=== PATIENT | male | born 1975 | race Caucasian/White ===

== ENCOUNTER 2021-04-13 10:11 | Inpatient (IN) | payer MEDICARE ==
[~2021-04-13] VITALS: Ht 170.2 cm; Wt 86.7 kg
[2021-04-13 11:24] LABS: HEMOGLOBIN 15.8 gm/dl (14.0-17.5); RED BLOOD COUNT 4.49 M/UL (4.20-5.50); WHITE BLOOD COUNT 5.5 K/UL (4.5-11.0)
[2021-04-13 11:50] LABS: BUN/CREATININE RATIO 14 (0-10)
[2021-04-14 07:43] LABS: WHITE BLOOD COUNT 4.3 K/UL (4.5-11.0)
[2021-04-14 08:06] LABS: BUN/CREATININE RATIO 20 (0-10)
[2021-04-14 08:40] LABS: HEMOGLOBIN 13.2 gm/dl (14.0-17.5); RED BLOOD COUNT 3.88 M/UL (4.20-5.50)
[2021-04-15 03:22] LABS: HEMOGLOBIN 13.3 gm/dl (14.0-17.5); RED BLOOD COUNT 3.86 M/UL (4.20-5.50)
[2021-04-15 03:56] LABS: WHITE BLOOD COUNT 5.6 K/UL (4.5-11.0)
[2021-04-15 04:14] LABS: BUN/CREATININE RATIO 31 (0-10)
[2021-04-16 03:36] LABS: HEMOGLOBIN 13.3 gm/dl (14.0-17.5); RED BLOOD COUNT 3.86 M/UL (4.20-5.50); WHITE BLOOD COUNT 6.2 K/UL (4.5-11.0)
[2021-04-17] MEDS ORDERED: CYANOCOBAL1000 MCG/1 SL (13:12)
--- NOTE | 2021-04-17 18:32 | NUR ---
TF STARTED @ 10ML/HR PER NEW ORDER.
[2021-04-18 08:55] LABS: HEMOGLOBIN 11.9 gm/dl (14.0-17.5)
[2021-04-18 09:05] LABS: RED BLOOD COUNT 3.44 M/UL (4.20-5.50); WHITE BLOOD COUNT 13.2 K/UL (4.5-11.0)
--- NOTE | 2021-04-18 18:09 | NUR ---
PT TURNED AND REPOSITIONED Q2-3HRS WITH FREQUENT ORAL CARE PERFORMED. LINENS STRAIGHTENED WITH EACH REPOSITION.
[2021-04-19 05:06] LABS: HEMOGLOBIN 11.3 gm/dl (14.0-17.5); RED BLOOD COUNT 3.28 M/UL (4.20-5.50)
[2021-04-19 09:46] LABS: BUN/CREATININE RATIO 25 (0-10)
[2021-04-20 06:05] LABS: HEMOGLOBIN 10.2 gm/dl (14.0-17.5); RED BLOOD COUNT 2.97 M/UL (4.20-5.50)
[2021-04-20 06:15] LABS: WHITE BLOOD COUNT 6.8 K/UL (4.5-11.0)
[2021-04-20 06:39] LABS: BUN/CREATININE RATIO 30 (0-10)
[2021-04-20 09:11] LABS: 7-AMINOCLONAZEPAM Negative (.); ALPRAZOLAM Negative (.); BENZODIAZEPINES CONFIRM Negative (.); CHLORDIAZEPOXIDE Negative (.); CLONAZEPAM Negative (.); DESALKYLFLURAZEPAM Negative (.); DESMETHYLCHLORDIAZEPOXIDE Negative (.); DESMETHYLDIAZEPAM Negative (.); DIAZEPAM Negative (.); FLURAZEPAM Negative (.); LORAZEPAM Negative (.); MIDAZOLAM Negative (.); OXAZEPAM Negative (.); TEMAZEPAM Negative (.); TRIAZOLAM Negative (.)
[2021-04-21 04:12] LABS: HEMOGLOBIN 10.9 gm/dl (14.0-17.5); RED BLOOD COUNT 3.18 M/UL (4.20-5.50)
[2021-04-21 04:47] LABS: BUN/CREATININE RATIO 33 (0-10)
[2021-04-22 05:15] LABS: HEMOGLOBIN 11.2 gm/dl (14.0-17.5); RED BLOOD COUNT 3.29 M/UL (4.20-5.50); WHITE BLOOD COUNT 7.3 K/UL (4.5-11.0)
[2021-04-22 05:50] LABS: BUN/CREATININE RATIO 38 (0-10)
[2021-04-23 05:08] LABS: RED BLOOD COUNT 3.22 M/UL (4.20-5.50); WHITE BLOOD COUNT 7.8 K/UL (4.5-11.0)
[2021-04-23 05:28] LABS: BUN/CREATININE RATIO 44 (0-10)
[2021-04-23 16:14] LABS: 6-ACETYLMORPHINE Negative (.); CODEINE Negative (.); DIHYDROCODEINE Negative (.); HYDROCODONE Negative (.); HYDROMORPHONE Negative (.); METHADONE Negative (.); METHADONE CONFIRMATION Negative (.); MORPHINE Negative (.); OPIATE CONFIRMATION Negative (.)
[2021-04-24 05:40] LABS: RED BLOOD COUNT 4.43 M/UL (4.20-5.50); WHITE BLOOD COUNT 27.4 K/UL (4.5-11.0)
[2021-04-24 05:41] LABS: HEMOGLOBIN 15.1 gm/dl (14.0-17.5)
[2021-04-24 19:09] LABS: AMPHETAMINE Negative (.); AMPHETAMINES CONFIRMATION Negative (.); MDA Negative (.); MDEA Negative (.); MDMA Negative (.); METHAMPHETAMINE Negative (.)
[2021-04-25 05:42] LABS: HEMOGLOBIN 11.9 gm/dl (14.0-17.5); RED BLOOD COUNT 3.39 M/UL (4.20-5.50); WHITE BLOOD COUNT 19.1 K/UL (4.5-11.0)
[2021-04-26 04:51] LABS: HEMOGLOBIN 11.6 gm/dl (14.0-17.5); RED BLOOD COUNT 3.27 M/UL (4.20-5.50); WHITE BLOOD COUNT 17.4 K/UL (4.5-11.0)
[2021-04-27 04:48] LABS: HEMOGLOBIN 9.7 gm/dl (14.0-17.5); WHITE BLOOD COUNT 13.3 K/UL (4.5-11.0)
[2021-04-27 04:50] LABS: RED BLOOD COUNT 2.81 M/UL (4.20-5.50)
[2021-04-28 06:04] LABS: HEMOGLOBIN 11.1 gm/dl (14.0-17.5)
[2021-04-28 06:12] LABS: RED BLOOD COUNT 3.25 M/UL (4.20-5.50); WHITE BLOOD COUNT 18.1 K/UL (4.5-11.0)
[2021-04-29 06:56] LABS: HEMOGLOBIN 9.6 gm/dl (14.0-17.5)
[2021-04-29 06:57] LABS: RED BLOOD COUNT 2.78 M/UL (4.20-5.50); WHITE BLOOD COUNT 13.2 K/UL (4.5-11.0)
[2021-04-29 11:14] LABS: CREATININE, URINE 51.5 mg/dL (Not Estab.)
[2021-04-30 05:26] LABS: HEMOGLOBIN 7.9 gm/dl (14.0-17.5)
[2021-04-30 05:36] LABS: RED BLOOD COUNT 2.3 M/UL (4.20-5.50); WHITE BLOOD COUNT 9.1 K/UL (4.5-11.0)
[2021-04-30 10:14] LABS: HBSAG SCREEN Negative (Negative); HEP A AB, IGM Negative (Negative); HEP B CORE AB, IGM Negative (Negative); HEP C VIRUS AB <0.1 (0.0-0.9)
[2021-05-01 03:46] LABS: HEMOGLOBIN 9.4 gm/dl (14.0-17.5)
[2021-05-01 03:47] LABS: RED BLOOD COUNT 2.76 M/UL (4.20-5.50); WHITE BLOOD COUNT 16.3 K/UL (4.5-11.0)
--- NOTE | 2021-05-01 14:22 | NUR ---
PER MD REQUEST/ORDER. TEMPORARY DIALYSIS CATH PLACED BY DR. COLE AT 1100. CONSENT SIGNED AND IN CHART. PT TOLERATED WELL. CHEST XRAY ORDERED PER MD AND GIVEN OK TO USE FOR HD. PER MD ORDER, HD STARTED AT 1320 PER HD NURSE.
[2021-05-02 05:26] LABS: HEMOGLOBIN 8.1 gm/dl (14.0-17.5); RED BLOOD COUNT 2.37 M/UL (4.20-5.50); WHITE BLOOD COUNT 18.4 K/UL (4.5-11.0)
--- NOTE | 2021-05-02 12:35 | NUR ---
AT APPROXIMATELY 1100 MR. ROSALES WAS FINISHING HD TREATMENT WHEN HIS OXYGEN SATURATED DROPPED ON THE MONITOR. DR. Bolden ASSESED THE PATIENT AND DETERMINED THAT A CHEST TUBE WAS NEEDED. A CHEST TUBE WAS PLACED TPO THE PATIENTS RIGHT SIDE PER DR. Bolden. AT THIS TIME THE VENTILATOR SUPPLIED O2 WAS INCREASED TO 100% PER MD. THE PATIENT TOLERATED THE PROCEDURE WELL AND IS NOW AT 96% ON THE MONITOR WITH 80% O2 ON VENTILTAOR. SEE MD NOTE/ VITAL SIGNS. PT APPEARS STABLE AT THIS TIME. WILL CONTINUE TO MONITOR. CHEST TUBE PLACEMENT VERIFIED VIA CHEST XRAY.
--- NOTE | 2021-05-02 15:08 | NUR ---
NAKUL CRITICAL ABG TO DR. MARSHAL MD @ 5989 RB AND VERIFIED.
[2021-05-03 04:45] LABS: HEMOGLOBIN 8.7 gm/dl (14.0-17.5); RED BLOOD COUNT 2.57 M/UL (4.20-5.50)
[2021-05-03 07:10] LABS: WHITE BLOOD COUNT 32.1 K/UL (4.5-11.0)
--- NOTE | 2021-05-03 08:15 | NUR ---
PER FAMILY REQUEST [facility] [place] CONTACTED FOR RELEASE OF PATIENT.
== END 2021-05-03 09:37 | disposition expired | DRG 4 ==
LOC: ER1 10:11 → CDU 15:17 → PROG CARE 15:17 → CCU 15:17 → PROG CARE 21:42 → CCU 04-16 10:24
PROVIDERS: Internal Medicine; Internal Medicine Nephrology; Internal Medicine Pulmonary Disease; Physician Assistant; Registered Nurse; Surgery; ADMIT Internal Medicine
PROC: 3E033XZ Introduction of Vasopressor into Peripheral Vein, Percutaneous Approach (ICD-10-PCS; 2021-04-13)
PROC: 8E0ZXY6 Isolation (ICD-10-PCS; 2021-04-13)
PROC: XW033E5 Introduction of Remdesivir Anti-infective into Peripheral Vein, Percutaneous Approach, New Technology Group 5 (ICD-10-PCS; 2021-04-13)
PROC: 3E0333Z Introduction of Anti-inflammatory into Peripheral Vein, Percutaneous Approach (ICD-10-PCS; 2021-04-13)
PROC: 5A1955Z Respiratory Ventilation, Greater than 96 Consecutive Hours (ICD-10-PCS; principal; 2021-04-16)
PROC: 0BH18EZ Insertion of Endotracheal Airway into Trachea, Via Natural or Artificial Opening Endoscopic (ICD-10-PCS; 2021-04-16)
PROC: 05HN33Z Insertion of Infusion Device into Left Internal Jugular Vein, Percutaneous Approach (ICD-10-PCS; 2021-04-16)
PROC: 5A1D70Z Performance of Urinary Filtration, Intermittent, Less than 6 Hours Per Day (ICD-10-PCS; 2021-04-24)
PROC: 0W9B30Z Drainage of Left Pleural Cavity with Drainage Device, Percutaneous Approach (ICD-10-PCS; 2021-04-24)
PROC: 0BJ08ZZ Inspection of Tracheobronchial Tree, Via Natural or Artificial Opening Endoscopic (ICD-10-PCS; 2021-04-29)
PROC: 0DJ08ZZ Inspection of Upper Intestinal Tract, Via Natural or Artificial Opening Endoscopic (ICD-10-PCS; 2021-04-29)
PROC: 0DH63UZ Insertion of Feeding Device into Stomach, Percutaneous Approach (ICD-10-PCS; 2021-04-29)
PROC: 0W9B30Z Drainage of Left Pleural Cavity with Drainage Device, Percutaneous Approach (ICD-10-PCS; 2021-04-29)
PROC: 0B113F4 Bypass Trachea to Cutaneous with Tracheostomy Device, Percutaneous Approach (ICD-10-PCS; 2021-04-29 12:30)
PROC: 0W9930Z Drainage of Right Pleural Cavity with Drainage Device, Percutaneous Approach (ICD-10-PCS; 2021-05-02)
DX: A41.89 Other specified sepsis (principal); R65.21 Severe sepsis with septic shock; U07.1 COVID-19; J80 Acute respiratory distress syndrome; J15.9 Unspecified bacterial pneumonia; J12.82 Pneumonia due to coronavirus disease 2019; N17.0 Acute kidney failure with tubular necrosis; N18.6 End stage renal disease; I21.4 Non-ST elevation (NSTEMI) myocardial infarction; I50.43 Acute on chronic combined systolic (congestive) and diastolic (congestive) heart failure; G93.41 Metabolic encephalopathy; K72.00 Acute and subacute hepatic failure without coma; D65 Disseminated intravascular coagulation [defibrination syndrome]; J93.83 Other pneumothorax; E87.2 Acidosis; I13.2 Hypertensive heart and chronic kidney disease with heart failure and with stage 5 chronic kidney disease, or end stage renal disease; E87.1 Hypo-osmolality and hyponatremia; E87.0 Hyperosmolality and hypernatremia; E87.3 Alkalosis; E87.5 Hyperkalemia; E78.2 Mixed hyperlipidemia; I25.5 Ischemic cardiomyopathy; E83.51 Hypocalcemia; D63.1 Anemia in chronic kidney disease; E83.39 Other disorders of phosphorus metabolism; R53.81 Other malaise; Z66 Do not resuscitate; Z51.5 Encounter for palliative care; D53.9 Nutritional anemia, unspecified; Z99.2 Dependence on renal dialysis; Z88.8 Allergy status to other drugs, medicaments and biological substances; Z88.5 Allergy status to narcotic agent; Z79.899 Other long term (current) drug therapy; Z79.82 Long term (current) use of aspirin; Z72.0 Tobacco use; Z83.3 Family history of diabetes mellitus
CPT/HCPCS: ECHO; 31500; 36415; 36600; 71045; 76705; 80048; 80053; 80061; 80074; 80076; 80202; 80307; 81001; 82043; 82550; 82553; 82570; 82607; 82728; 82747; 82803; 83036; 83540; 83550; 83605; 83615; 83735; 83880; 83921; 84100; 84132; 84133; 84156; 84300; 84439; 84443; 84484; 85025; 85027; 85379; 85384; 85610; 85652; 85730; 86140; 87040; 87070; 87081; 87086; 87205; 89050; 90935; 90937; 93005; 93306; 94002; 94003; 94640; 94660; 94664; 94760; 96374; 99285; C1752; C1769; J0330; J0360; J0610; J1100; J1205; J1650; J1940; J2150; J2185; J2250; J2370; J2704; J2765; J3010; J3370; J3420; J7030; J7050; J7070; J7120; P9047; Q9967; U0002